=== PATIENT | female | born 1945 | race Caucasian/White ===

== ENCOUNTER → 2016-09-06 | Day surgery (SDC) | payer OTHER ==
[2016-08-27 12:20] VITALS: BMI 36.0
[~2016-09-06] VITALS: Ht 165.1 cm; Wt 98.2 kg
[~2016-09-06] MED LIST: BUDE1TAB PO; CHOL2000 PO; LEVO100T PO; LIDOCAINE HCL 2% 2 ML VIAL (20MG/ML) ONE; MESA1.2T PO; MIDAZOLAM HCL 1 MG/ML 2ML VIAL ONE; MULT-506 PO; ONDANSETRON INJ 2 MG/ML 2 ML VIAL ONE; PROPOFOL IV EMULSION 10 MG/ML 20 ML VIAL IV ONE; SODIUM CHLORIDE 0.9% 500ML 500 ML IV ONE; VERA240T21 PO
[2016-09-06 08:22] VITALS: Ht 165.1 cm; Wt 98.2 kg
--- NOTE | 2016-09-06 08:46 | Endo History and Physical ---
History & Physical Date of Service: Sep 06, 2016. Chief Complaint: hx ulcerative colitis, recent bleed within past 2 weeks Referring Physician: Michelle History of Present Illness 70 yo CF who presents for colonoscopy secondary to history of ulcerative colitis and recent GI bleeding. Past Surgical History Hx Cardiac Surgery: No Hx Internal Defibrillator: No Hx Pacemaker: No Hx Abdominal Surgery: Yes ([facility] BSO) Hx of Implantable Prosthesis: No Hx Post-Op Nausea and Vomiting: No Hx Cancer Surgery: No Hx Thoracic Surgery: No Hx Orthopedic: Yes (LT KNEE SURGERY WITH HARDWARE S/P FALL, L SHOULDER DISLOCATION REPAIR.) Hx Urinary Tract Surgery: No Family History None Social History Smoking Status: Former Smoker Hx Substance Use: No Hx Alcohol Use: No Allergies Coded Allergies: Codeine (Verified Allergy, Unknown, NAUSEA AND HEADACHE, 08/27/16) Penicillins (Verified Allergy, Unknown, RASH, 08/27/16) Current Medications Reported Home Medications Medications Dose Route/Sig Max Daily Dose Days Date Category Vitamin D3 (Cholecalciferol) 2,000 Unit Cap 1 Cap PO LUNCH 08/27/16 Reported Multivitamin (Multivitamins) Tab 1 Tab PO LUNCH 08/27/16 Reported Uceris (Budesonide) 9 Mg Tab 1 Tab PO HS 08/27/16 Reported Lialda (Mesalamine) 1.2 Gm Tab 2 Tab PO BID 08/27/16 Reported Synthroid (Levothyroxine Sodium) 100 Mcg Tab 100 Mcg PO QAM 08/27/16 Reported Verapamil HCl Cr (Verapamil HCl) 240 Mg Tab 1 Tab PO QAM 08/27/16 Reported Vital Signs Weight (Kilograms): 98.18 Height (Feet): 5 Height (Inches): 5 Date Time Temp Pulse Resp B/P Pulse Ox O2 Delivery O2 Flow Rate FiO2 09/06/16 08:10 36.5 18 192/88 97 Room Air Physical Exam General Appearance: WD/WN, no apparent distress Respiratory/Chest: Auscultation: breath sounds normal Cardiovascular: Heart Auscultation: RRR Abdomen: Bowel Sounds: normal Inspection & Palpation: soft, non-distended, no tenderness, guarding & rebound Assessment and Plan Assessment: 70 yo CF who presents for colonoscopy secondary to history of ulcerative colitis and recent GI bleeding. Plan: Proceed with colonoscopy.
--- NOTE | 2016-09-06 10:27 | Discharge Instructions ---
Endoscopy Patient Instructions Date / Procedure(s) Performed Sep 06, 2016. Colonoscopy Allergy Information Coded Allergies: Codeine (Verified Allergy, Unknown, NAUSEA AND HEADACHE, 08/27/16) Penicillins (Verified Allergy, Unknown, RASH, 08/27/16) Discharge Date / Findings Sep 06, 2016. Colon polyp Rectal polyp Ulcerative colitis Diverticulosis Internal hemorrhoids Medication Instructions Stopped Medication(s): told to stop euersis, and lialda OK to resume all medications today as prescribed. Reported Home Medications Medications Dose Route/Sig Max Daily Dose Days Date Category Vitamin D3 (Cholecalciferol) 2,000 Unit Cap 1 Cap PO LUNCH 08/27/16 Reported Multivitamin (Multivitamins) Tab 1 Tab PO LUNCH 08/27/16 Reported Uceris (Budesonide) 9 Mg Tab 1 Tab PO HS 08/27/16 Reported Lialda (Mesalamine) 1.2 Gm Tab 2 Tab PO BID 08/27/16 Reported Synthroid (Levothyroxine Sodium) 100 Mcg Tab 100 Mcg PO QAM 08/27/16 Reported Verapamil HCl Cr (Verapamil HCl) 240 Mg Tab 1 Tab PO QAM 08/27/16 Reported Provider Instructions Activity Restrictions - No exercising or heavy lifting for 24 hours. - Do not drink alcohol the day of the procedure. - Do not drive a car or operate machinery until the day after the procedure. - Do not make any important decisions or sign important papers in 24 hours after the procedure. Following Day: - Return to full activity which may include returning to work/school. Diet Start your diet with liquids and light foods (jello, soup, juice, toast). Then eat your usual diet if not nauseated. Treatment For Common After Affects For mild abdominal pain, bloating, or excessive gas: - Rest - Eat lightly - Lie on right side Follow-Up Information Follow-up with [facility] as scheduled Anesthesia Information What You Should Know You have had a procedure that required some medicine to reduce anxiety and discomfort. This treatment is called moderate sedation. After receiving the treatment, you may be sleepy, but you will be able to breathe on your own. The effects of the treatment may last for several hours. Follow these instructions along with Activity/Diet recommendations noted above: * Do NOT do anything where dizziness or clumsiness would be dangerous. * Rest quietly at home today, then you can be up and about tomorrow. * Have a responsible person stay with you the rest of today. * You may have had an I.V. today. If so, you may take the dressing off later today. Recommendations Call your doctor if: * Trouble breathing * Continuous vomiting for more than 24 hours * Temperature above 101 degrees * Severe abdominal pain or bloating * Pain not relieved by pain medicine ordered * There is increased drainage or redness from any incision * A large amount of rectal bleeding greater than 2-3 tablespoons. (If you had a polyp/s removed or have hemorrhoids, a small amount of blood - from the rectum is to be expected.) * You have any unanswered questions or concerns. IN THE EVENT OF A SERIOUS EMERGENCY, GO TO THE NEAREST EMERGENCY ROOM Your discharge instructions were prepared by provider Thien Zuniga. Patient Instructions Signature Page Marta Reaves Patient (or Guardian) Signature/Date: I have read and understand the instructions given to me by my caregivers. Caregiver/RN/Doctor Signature/Date: The above-named patient and/or guardian has received patient instructions on this date. + Original Patient Signature Page (only) stays with chart. Please make copy for patient.
--- NOTE | 2016-09-06 10:42 | GI REPORT ---
Procedure Date: 09/06/2016 9:56 AM Procedure: Colonoscopy Indications: Follow-up of ulcerative colitis Medicines: Monitored Anesthesia Care Complications: No immediate complications. Estimated Blood Loss: Estimated blood loss: none. Procedure: Pre-Anesthesia Assessment: - Prior to the procedure, a History and Physical was performed, and patient medications and allergies were reviewed. The patient's tolerance of previous anesthesia was also reviewed. The risks and benefits of the procedure and the sedation options and risks were discussed with the patient. All questions were answered, and informed consent was obtained. Prior Anticoagulants: The patient has taken no previous anticoagulant or antiplatelet agents. ASA Grade Assessment: II - A patient with mild systemic disease. After reviewing the risks and benefits, the patient was deemed in satisfactory condition to undergo the procedure. After I obtained informed consent, the scope was passed under direct vision. Throughout the procedure, the patient's blood pressure, pulse, and oxygen saturations were monitored continuously. The scope was introduced through the anus and advanced to the terminal ileum. The colonoscopy was performed without difficulty. The patient tolerated the procedure well. The quality of the bowel preparation was good. The terminal ileum, ileocecal valve, appendiceal orifice, and rectum were photographed. Findings: A 12 mm polyp was found at the ileocecal valve. The polyp was sessile. The polyp was removed with a hot snare. Resection and retrieval were complete. To prevent bleeding after the polypectomy, one hemostatic clip was successfully placed (MR conditional). There was no bleeding at the end of the procedure. A 5 mm polyp was found in the rectum. The polyp was sessile. The polyp was removed with a hot snare. Resection and retrieval were complete. Multiple small-mouthed diverticula were found in the sigmoid colon. Non-bleeding internal hemorrhoids were found during retroflexion. The hemorrhoids were small. Multiple random biopsies were obtained with cold forceps for histology in the entire colon. To stop active bleeding, one hemostatic clip was successfully placed (MR conditional). There was no bleeding at the end of the procedure. Impression: - One 12 mm polyp at the ileocecal valve, removed with a hot snare. Resected and retrieved. Clip (MR conditional) was placed. - One 5 mm polyp in the rectum, removed with a hot snare. Resected and retrieved. - Diverticulosis in the sigmoid colon. - Non-bleeding internal hemorrhoids. - Multiple random biopsies were obtained in the entire colon. - One hemostatic clip was successfully placed (MR conditional). Recommendation: - Resume previous diet. - Continue present medications. - Repeat colonoscopy for surveillance based on pathology results. - Return to primary care physician as previously scheduled. Thien Zuniga, DO 09/06/2016 10:42:25 AM This report has been signed electronically. Note Initiated On: 09/06/2016 9:56 AM I attest to the content of the Intraoperative Record and orders documented therein, exceptions below
--- NOTE | 2016-09-06 10:43 | Anesthesiology Progress Note ---
Anesthesia Post Op Note Date & Time Sep 06, 2016 at 10:44 Vital Signs Pain Intensity: 0 Vital Signs Past 12 Hours Date Time Temp Pulse Resp B/P Pulse Ox O2 Delivery O2 Flow Rate FiO2 09/06/16 10:35 82 16 90/66 95 Room Air 09/06/16 08:10 36.5 18 192/88 97 Room Air Notes Mental Status: alert / awake / arousable, participated in evaluation Pt Amnestic to Procedure: Yes Nausea / Vomiting: adequately controlled Pain: adequately controlled Airway Patency, RR, SpO2: stable & adequate BP & HR: stable & adequate Hydration State: stable & adequate Anesthetic Complications: no major complications apparent
[2016-09-06 11:15] VITALS: BP 144/77; PULSE 68; O2SAT 95
== END | disposition home or self-care (01) ==
LOC: C.GI 07:37
PROVIDERS: ATTEND Internal Medicine
DX: Z09 Encounter for follow-up examination after completed treatment for conditions other than malignant neoplasm (principal); K51.90 Ulcerative colitis, unspecified, without complications; D12.0 Benign neoplasm of cecum; K62.1 Rectal polyp; K57.32 Diverticulitis of large intestine without perforation or abscess without bleeding; K64.8 Other hemorrhoids; I10 Essential (primary) hypertension; E66.9 Obesity, unspecified; Z68.31 Body mass index [BMI] 31.0-31.9, adult; Z98.890 Other specified postprocedural states; Z87.891 Personal history of nicotine dependence; Z88.5 Allergy status to narcotic agent; Z88.2 Allergy status to sulfonamides

== ENCOUNTER → 2016-12-06 | Outpatient (CLI) | payer OTHER ==
[~2016-12-06] MED LIST changes: -LIDOCAINE HCL 2% 2 ML VIAL (20MG/ML) ONE; -MIDAZOLAM HCL 1 MG/ML 2ML VIAL ONE; -ONDANSETRON INJ 2 MG/ML 2 ML VIAL ONE; -PROPOFOL IV EMULSION 10 MG/ML 20 ML VIAL IV ONE; +REGADENOSON 0.4 MG/5 ML SYR ONE; -SODIUM CHLORIDE 0.9% 500ML 500 ML IV ONE
--- NOTE | 2016-12-08 07:35 | MYOCARDIAL PERFUSION SCAN ---
STUDY REQUESTED BY: Fermin Pulido MD STUDY TITLE: ONE-DAY NUCLEAR MEDICINE TECHNETIUM-99M CARDIOLITE MYOCARDIAL PERFUSION SCAN. INDICATION: Dyspnea on exertion, chest discomfort. ELECTROCARDIOGRAM: Baseline EKG sinus rhythm with ventricular rate of 72. There is an incomplete right bundle branch block, no significant ST abnormalities. Stress EKG, heart rate mahin from 72-95 representing 63% of maximum predicted heart rate. With Lexiscan, there were no significant ST abnormalities or arrhythmias. TECHNIQUE: For the stress portion of the study 32.0 mCi of technetium-99m Cardiolite IV was injected at 11:05 a.m. on 12/06/2016. Thirty minutes following the injection, imaging of the heart was performed in multiple projections. For the rest portion of the study, 11.0 mCi of technetium-99m Cardiolite was injected IV at 9:30 a.m. One hour following the injection, imaging of the heart was performed in the same projections. FINDINGS: Rotating raw images were reviewed in detail. There was a large uniform breast shadow. Mild liver uptake near the inferior imaging border of the heart. There was no significant extracardiac pathologic uptake. Short axis, vertical long axis, and horizontal long axis images were reviewed in detail. There was no evidence of visual TID. Myocardial perfusion was normal with both stress and rest images. LV size was small with end-diastolic volume of 56. LV function was normal with an EF of 75% and no regional wall motion abnormalities. IMPRESSION: 1. Normal myocardial perfusion scan with no evidence of Lexiscan induced ischemia or infarct. 2. Small left ventricular size with normal left ventricular function, ejection fraction of 75% with no regional wall motion abnormalities. 3. Nondiagnostic Lexiscan EKG due to inability to achieve target heart rate. MTDD
== END | disposition home or self-care (01) ==
LOC: C.NUCL 08:34
PROVIDERS: ATTEND Family Medicine
DX: R06.09 Other forms of dyspnea (principal); R07.2 Precordial pain

== ENCOUNTER → 2017-07-10 | Outpatient (CLI) | payer OTHER ==
[~2017-07-10] MED LIST changes: -REGADENOSON 0.4 MG/5 ML SYR ONE
--- NOTE | 2017-07-10 14:36 | MAMMOGRAPHY REPORT ---
BILATERAL DIGITAL SCREENING MAMMOGRAM TOMOSYNTHESIS WITH CAD: 07/10/2017 CLINICAL HISTORY: Routine screening. Patient has no complaints. TECHNIQUE: Breast tomosynthesis in addition to standard 2D mammography was performed. Current study was also evaluated with a Computer Aided Detection (CAD) system. COMPARISON: Comparison is made to exams dated: 06/03/2016 mammogram, 05/20/2016 mammogram, 12/15/2015 mammogram, 03/24/2015 mammogram, 03/09/2015 mammogram, and 12/24/2013 mammogram - [facility] enter. BREAST COMPOSITION: The tissue of both breasts is almost entirely fatty. FINDINGS: No suspicious masses, calcifications, or areas of architectural distortion are noted in ei ther breast. There has been no significant interval change compared to prior exams. Mass and associa heri biopsy marker clip in the left subareolar breast is not significantly changed. Scattered bilater al benign-appearing calcifications are also stable. Small benign-appearing mass in the left 12:00 po sterior breast is stable dating back to at least the 2007 exam. IMPRESSION: ACR BI-RADS CATEGORY 2: BENIGN There is no mammographic evidence of malignancy. A 1 year screening mammogram is recommended. The pa tient will receive written notification of the results. Approximately 10% of breast cancers are not detected with mammography. A negative mammographic report should not delay biopsy if a clinically suggestive mass is present. Julissa Kimball M.D. /:07/10/2017 13:20:30 Sewing Inspector: Albina MORGAN(Johan)(Marcelina)(MARÍA), [facility] letter sent: Normal 1/2 BI-RADS Code: ACR BI-RADS Category 2: Benign
== END | disposition home or self-care (01) ==
LOC: C.MAMM 12:50
PROVIDERS: ATTEND Family Medicine
DX: Z12.31 Encounter for screening mammogram for malignant neoplasm of breast (principal)

== ENCOUNTER → 2018-02-17 | Outpatient (CLI) | payer OTHER | END | disposition home or self-care (01) | LOC: C.LABMFLN 09:02 | PROVIDERS: ATTEND Family Medicine | DX: E03.9 Hypothyroidism, unspecified (principal); R61 Generalized hyperhidrosis ==

== ENCOUNTER 2025-06-06 10:07 | Observation (INO) ==
--- NOTE | 2025-06-06 10:18 | Emergency Department Note ---
Impression & Plan KAHN (dyspnea on exertion), Volume overload, Hypertension, CAD (coronary artery disease) ED Provider Note NAME: JUANY REED AGE: 79 SEX: F : 1945 ARRIVES VIA: Walk-In INFORMANT: Patient, ED PROVIDER(S): Bebeto Garza MD CHIEF COMPLAINT: Shortness of breath MEDICAL DECISION MAKING: Patient presents with the above. Patient with likely volume overload although has relatively clear lung sounds. Patient with lower extremity edema. IV was established and blood work was obtained along with a chest x-ray and EKG. The patient's blood work shows a normal white count hemoglobin and platelet count. The patient's kidney function is unremarkable. Electrolytes unremarkable. Patient's initial troponin is negative. Urinalysis negative for blood or infection. Chest x-ray does not show evidence of obvious pneumonia. Given the patient's symptoms concerning for volume overload. The patient was ordered IV Lasix 40 mg. Patient also with history of CAD and the patient has not had an echocardiogram since last June. Patient would likely benefit from repeat echo to further assess the patient's function. I did speak with Dionne Mckeon PA-C and Dr. Chen and the patient was admitted to the medicine service. Patient the patient's family member comfortable plan of care. Discussion w/ other healthcare providers: Dionne Mckeon PA-C and Dr. Chen inpatient medicine service Prior /Outside records reviewed: I reviewed part of a cardiology visit note from Dr. Redmond from April 26. Known history of CAD drug-eluting stents in RCA as well as anterior descending branch of left coronary. Patient on dual antiplatelet therapy. Differential diagnosis: Reactive airway disease, pneumonia, pneumothorax, COPD, CHF, ACS, pulmonary embolism, musculoskeletal, GERD as well as other pathologies were considered. Diagnostics, as interpreted by me: ECG: Normal sinus rhythm, rate of 63, normal intervals, normal axis no ST elevations. Incomplete right bundle. Cardiac monitoring: An order was placed for continuous cardiac monitoring. The monitor shows a rate of 65 with sinus rhythm. Patient was placed on pulse oximetry Medical decision rules: None Imaging studies: I informally interpreted the patient's chest x-ray does not show evidence of obvious pneumonia with formal report to follow. HPI: Patient presents due to concern for worsening shortness of breath ongoing for about 6 weeks in duration. The patient has noticed progressive worsening KAHN and orthopnea. Patient reports prior history of CAD and is followed with Dr. Redmond. She did have stents placed this past August and a year ago June. Patient denies any active chest pains. Patient states that she has had dry nonproductive cough primarily when she is lying flat. Patient has noticed worsening leg swelling. Patient believes maybe she increased in weight about 4 pounds over this time. Patient denies any nausea vomiting or diarrhea. Patient reports that she was taken off her statin due to muscle aches and pains. She denies any changes in her diet. PAST MEDICAL HISTORY: See Below PAST SURGICAL HISTORY: See Below SOCIAL HISTORY: See Below HOME MEDICATIONS: See Below ALLERGIES: See Below VITALS: See Below PHYSICAL EXAMINATION: GENERAL: NAD, non-toxic. EYE EXAM: Normal conjunctiva. PERRL, no anisocoria and EOM's grossly intact w/o pain. OROPHARYNX: Moist mucus membranes, grossly normal dentition. NECK: Trachea midline, no stridor. LUNGS: Clear to auscultation. Normal chest wall mechanics. HEART: NSR, no MRG. ABDOMEN: Abdomen soft, non-tender, no masses, no rebound or guarding. BACK: No CVA TTP. SKIN: No rashes and no bruising. UPPER EXTREMITIES: Upper extremities are grossly normal. LOWER EXTREMITIES: Grossly normal, 1+ symmetric lower extremity edema without calf pain or erythema. No obvious asymmetry. NEURO EXAM: Awake and alert, follows commands, no obvious facial asymmetry, normal speech, moves all 4 extremities. Past Med/Surg History Problem List (Updated 06/06/25 @ 17:35 by Bebeto Garza MD) Volume overload (Acute) KAHN (dyspnea on exertion) (Acute) Swelling of both lower extremities Dyspnea Presence of drug-eluting stent in anterior descending branch of left coronary artery Presence of drug-eluting stent in right coronary artery Dissecting aneurysm of thoracic aorta CAD (coronary artery disease) (Acute) Diabetes mellitus Pulmonary nodule Lingula 0.5 cm 06/[address] 6 months Depression Vitamin B12 deficiency Wet senile macular degeneration Constipation Hearing loss At risk for prolonged QT interval syndrome Allergic rhinitis Antiplatelet or antithrombotic long-term use Vitamin D deficiency (Chronic) Ulcerative colitis (Chronic) Osteoporosis (Chronic) Hypothyroidism, unspecified (Chronic) Hypertension (Chronic) Hyperlipidemia (Chronic) Diverticulosis (Chronic) Arthritis (Chronic) Medical History Detached retina Breast cyst Surgical History History of coronary artery stent placement H/O shoulder surgery H/O knee surgery H/O: hysterectomy Family History Other Coronary heart disease Hypertension Social History Smoking Status: Former smoker Hx Alcohol Use: No Hx Substance Use: No Preferred Language: Surinamese Communication Ability: Effective Amusement Park Worker Required: No Beliefs That Will Affect Care: None marital status: / Current Living Situation: Alone Current Living Situation Comment: senior house living apartments Feels Safe at Home: Yes Safety Concerns: Feels Safe At This Time caffeine: Yes Seatbelt Use: always Assistive Devices: Cane and Glasses Allergies Allergies Allergy/AdvReac Type Severity Reaction Status Date / Time codeine Allergy Unknown NAUSEA AND Verified 04/26/25 09:04 HEADACHE Penicillins Allergy Unknown RASH Verified 04/26/25 09:04 pravastatin AdvReac Mild Cramping Verified 04/26/25 09:04 of the Muscles sertraline AdvReac sedation Verified 04/26/25 09:04 zetia AdvReac Intermediate Hives Uncoded 04/26/25 09:04 flu vaccine AdvReac flu like Uncoded 04/26/25 09:04 illness Home Meds Home Medications Medication Instructions Recorded Confirmed vit C 250 mg-vit E 90 mg-zinc 40 1 tab PO BID 08/16/22 06/06/25 mg-copper 1 [id number] capsule (PreserVision AREDS-2) aspirin 81 mg tablet,delayed 81 mg PO DAILY 07/07/24 06/06/25 release (Ecotrin Low Strength) isosorbide mononitrate 60 mg 60 mg PO DAILY 06/06/25 06/06/25 tablet,extended release 24 hr Previous Rx's Medication Instructions Recorded clopidogrel 75 mg tablet (Plavix) 75 mg PO DAILY #90 tabs 07/07/24 levothyroxine 175 mcg tablet 175 mcg PO DAILY #90 tabs 01/24/25 metoprolol succinate 100 mg 100 mg PO DAILY #90 tabs 02/15/25 tablet,extended release 24 hr nitroglycerin 0.4 mg sublingual 0.4 mg sublingual .COMPLEX PRN 02/15/25 tablet (Nitrostat) chest pain #30 tabs verapamil 240 mg 24 hr 240 mg PO DAILY #90 caps 02/15/25 capsule,extended release losartan 100 mg tablet 100 mg PO DAILY #90 tabs 03/05/25 escitalopram oxalate 10 mg tablet 10 mg PO DAILY #90 tabs 04/19/25 (Lexapro) Results & Data (ED) Vital Signs Vital Signs - 24 hr 06/06/25 10:09 06/06/25 10:30 06/06/25 10:37 Temperature 36.7 C Temperature Source Temporal Artery Scan Pulse Rate 62 61 Pulse Rate from SpO2 Sensor 59 L Respiratory Rate 14 18 Respiratory Effort / Characteristics Non-Labored Spontaneous Respiratory Depth Normal Respiratory Pattern Regular Blood Pressure 153/82 H 155/65 H Blood Pressure Mean 105 95 Pulse Oximetry 95 96 Oxygen Delivery Method Room Air Room Air Room Air Sepsis New/Unexplained Change in Mental Status No Sepsis Action Taken by Nursing No Action Required 06/06/25 10:37 06/06/25 10:37 06/06/25 10:42 Temperature Temperature Source Pulse Rate 60 58 L Pulse Rate from SpO2 Sensor 58 L Respiratory Rate 18 15 Respiratory Effort / Characteristics Respiratory Depth Respiratory Pattern Blood Pressure 128/91 Blood Pressure Mean 103 Pulse Oximetry 96 94 Oxygen Delivery Method Room Air Room Air Room Air Sepsis New/Unexplained Change in Mental Status Sepsis Action Taken by Nursing 06/06/25 11:00 06/06/25 11:27 Temperature Temperature Source Pulse Rate 62 61 Pulse Rate from SpO2 Sensor 64 Respiratory Rate 26 H Respiratory Effort / Characteristics Respiratory Depth Respiratory Pattern Blood Pressure 147/74 H Blood Pressure Mean 98 Pulse Oximetry 95 Oxygen Delivery Method Room Air Sepsis New/Unexplained Change in Mental Status Sepsis Action Taken by Nursing Laboratory Data 06/06/25 10:40 06/06/25 10:40 Lab Results 06/06/25 Range/Units 10:40 WBC 7.50 (4.8-10.8) K/ul RBC 5.00 (4.20-5.40) M/uL Hgb 14.2 (12.0-16.0) g/dL Hct 43.1 (37.0-47.0) % MCV 86.2 (80.0-100.0) fL MCH 28.4 (25.0-34.0) pg MCHC 32.9 (32.0-36.0) g/dL RDW Std Deviation 42.3 (36.4-46.3) fL RDW Coeff of Raad 13.7 (11.5-14.5) % Plt Count 206 (130-400) K/uL MPV 9.8 (9.4-12.4) fL Immature Gran % (Auto) 0.4 % Neut % (Auto) 73.4 % Lymph % (Auto) 15.6 % Catron % (Auto) 7.7 % Eos % (Auto) 2.5 % Baso % (Auto) 0.4 % Neut # (Auto) 5.50 (1.40-6.50) K/uL Lymph # (Auto) 1.17 L (1.20-3.40) K/uL Catron # (Auto) 0.58 (0.11-0.59) K/uL Eos # (Auto) 0.19 (0.00-0.50) K/uL Baso # (Auto) 0.03 (0.00-0.20) K/uL Immature Gran # (Auto) 0.03 (0.01-0.20) K/uL PT 10.7 (9.0-12.0) Seconds INR 1.0 (0.9-1.1) APTT 25 (21-31) Seconds PTT Ratio 0.9 Sodium 140 (136-145) mmol/L Potassium 3.9 (3.5-5.1) mmol/L Chloride 105 (98-107) mmol/L Carbon Dioxide 27 (21-32) mmol/L Anion Gap 8 (3-11) BUN 14 (6-23) mg/dl Creatinine 0.82 (0.6-1.2) mg/dl Est Cr Clr Drug Dosing 65.2 ml/min eGFR 72.72 BUN/Creatinine Ratio 17.1 (10-20) Glucose 126 H (70-99(Fasting)) mg/dl Calcium 9.4 (8.6-10.3) mg/dl Magnesium 2.0 (1.7-2.4) mg/dl Total Bilirubin 0.5 (0.2-1.0) mg/dl AST 15 (13-39) U/L ALT 15 (7-52) U/L Alkaline Phosphatase 86 (34-104) U/L Troponin I High Sens 4.9 (0-14) pg/ml B-Natriuretic Peptide 122 H (0-100) pg/ml Total Protein 7.2 (6.0-8.3) gm/dl Albumin 4.0 (3.4-5.0) gm/dl Globulin 3.2 (2.5-4.0) gm/dl Albumin/Globulin Ratio 1.3 (0.9-2) Administered Medications Discontinued Medications Furosemide (Furosemide 40 Mg/4 Ml Vial) 40 mg IV ONE ONE Stop: 06/06/25 12:01 Last Admin: 06/06/25 12:42 Dose: 40 mg Documented By: mbu Imaging Data Radiologist's Impression: Chest X-Ray 06/06/25 10:30 XR chest 1V portable HISTORY: 79 years-old Female Dyspnea COMPARISON: CTA chest March 22, 2025 TECHNIQUE: AP view of the chest FINDINGS: Cardiac silhouette is enlarged. Unchanged mediastinal contours. No pneumothorax, pleural effusion or airspace consolidation. Mild bibasilar densities likely atelectatic. Mild chronic appearing coarsening of the interstitium. No pneumothorax, pleural effusion or overt pulmonary edema. Degenerative changes of the shoulders and spine. A screw projects over the right scapula. IMPRESSION: 1. Cardiomegaly with chronic interstitial coarsening. 2. Mild bibasilar atelectasis. ACT 112: Negative or not required by law. The above report was generated using voice recognition software. It may contain grammatical, syntax or spelling errors. Electronically signed by: Karlo Choudhury M.D. 06/06/2025 11:14 AM Discharge Plan Visit Data Chief Complaint: Shortness of Breath/Dyspnea Stated Complaint: CHEST TIGHTNESS, SOB ED Provider: Bebeto Garza Discharge Problem: KAHN (dyspnea on exertion), Volume overload, Hypertension, CAD (coronary artery disease) Patient Disposition: Admitted As Inpatient Condition: Good Discharge Instructions Interventions: ED Discharge Assessment Last Done: 06/06/25 14:53 Discharge Problem: Volume overload Qualifiers: Hypervolemia type: other Qualified Code(s): E87.79 - Other fluid overload Hypertension Qualifiers: Hypertension type: unspecified Qualified Code(s): I10 - Essential (primary) hypertension CAD (coronary artery disease) Qualifiers: Coronary Disease-Associated Artery/Lesion type: [place] artery [place] vs. transplanted heart: [place] heart Associated angina: without angina Qualified Code(s): I25.10 - Atherosclerotic heart disease of [place] coronary artery without angina pectoris
[2025-06-06 11:04] LABS: Hematocrit (blood only) 43.1 % (37.0-47.0); Hemoglobin 14.2 g/dL (12.0-16.0); Immature Granulocytes # (auto) 0.03 K/uL (0.01-0.20); Immature Granulocytes % (auto) 0.4 %; Mean Corpuscular Hemoglobin 28.4 pg (25.0-34.0); Mean Corpuscular Volume 86.2 fL (80.0-100.0); Platelet Count 206 K/uL (130-400); RDW Standard Deviation 42.3 fL (36.4-46.3); Red Blood Count 5.00 M/uL (4.20-5.40); White Blood Count 7.50 K/ul (4.8-10.8)
--- NOTE | 2025-06-06 11:20 | XRay Report ---
XR chest 1V portable HISTORY: 79 years-old Female Dyspnea COMPARISON: CTA chest March 22, 2025 TECHNIQUE: AP view of the chest FINDINGS: Cardiac silhouette is enlarged. Unchanged mediastinal contours. No pneumothorax, pleural effusion or airspace consolidation. Mild bibasilar densities likely atelectatic. Mild chronic appearing coarsenin g of the interstitium. No pneumothorax, pleural effusion or overt pulmonary edema. Degenerative moser es of the shoulders and spine. A screw projects over the right scapula. IMPRESSION: 1. Cardiomegaly with chronic interstitial coarsening. 2. Mild bibasilar atelectasis. ACT 112: Negative or not required by law. The above report was generated using voice recognition software. It may contain grammatical, syntax o r spelling errors. Electronically signed by: Karlo Choudhury M.D. 06/06/2025 11:14 AM
[2025-06-06 11:23] LABS: Alanine Aminotransferase 15.0 U/L (7-52); Albumin Globulin Ratio 1.3 (0.9-2); Albumin Level 4.0 gm/dl (3.4-5.0); Alkaline Phosphatase 86.0 U/L (34-104); Anion Gap 8.0 (3-11); Bilirubin,Total 0.5 mg/dl (0.2-1.0); Blood Urea Nitrogen 14.0 mg/dl (6-23); Calcium 9.4 mg/dl (8.6-10.3); Carbon Dioxide 27.0 mmol/L (21-32); Chloride 105.0 mmol/L (98-107); Creatinine Clr Calc Pharmacy 65.2 ml/min; Globulin 3.2 gm/dl (2.5-4.0); Glucose 126.0 mg/dl (70-99(Fasting)); Magnesium 2.0 mg/dl (1.7-2.4); Potassium 3.9 mmol/L (3.5-5.1); Sodium 140.0 mmol/L (136-145); Total Protein 7.2 gm/dl (6.0-8.3)
[2025-06-06 11:32] LABS: INR 1.0 (0.9-1.1); Partial Thromboplastin Time 25 Seconds (21-31); Prothrombin Time 10.7 Seconds (9.0-12.0)
[2025-06-06] MEDS: FUROSEMIDE 40 MG/4 ML VIAL IV ONE (12:42)
--- NOTE | 2025-06-06 13:21 | History & Physical Report ---
Date of Service June 06, 2025 Assessment & Plan (1) Dyspnea: (2) Swelling of both lower extremities: (3) CAD (coronary artery disease): (4) Hypertension: Plan Marta is a pleasant 79-year-old woman with past medical history of CAD s/p JORDAN in RCA and LAD on long-term DAPT, hypercholesterolemia, hypertension, hypothyroidism, depression, anxiety, left lung nodule, mild glucose intolerance, chronic lower extremity edema s/p venous ablation of her legs. She presented with progressive KAHN, orthopnea, LE swelling x 4-6 weeks. There is no overt pulmonary edema on CXR. BNP mildly elevated at 122. She was admitted for further workup of her symptoms. 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 Last echo in June 2024 with EF 55%, no regional wall motion abnormalities, normal LV size and systolic function - S/p Lasix 40 mg IV x 1 in ED - Repeat echocardiogram ordered - Start Lasix 40 mg IV daily - Apply TAMI valenzuela bilaterally - Daily standing weight - Monitor I's & O's - Heart healthy, low Na diet - PT/OT consulted - Trend BMP daily with ongoing diuresis - Monitor on telemetry #CAD - s/p JORDAN in RCA and LAD. Follows with Dr. Redmond outpatient - Continue DAPT - Troponin WNL at 4.9 - repeat x 1 pending #HTN - Continue lisinopril 10 mg daily, verapamil ER 240 mg daily, metoprolol ER 100 mg daily, losartan 100 mg daily #Mild glucose intolerance - most recent A1c 6.4% in 05/14. Managed by diet - Glucose on arrival 126 - Can start regimen if blood sugars are consistently elevated, but will just monitor for now #HypothyroidismTSH WNL in 05/14. Continue levothyroxine 175 mcg daily #Depression/anxietycontinue escitalopram 10 mg daily #HLD - previously took atorvastatin however this was recently discontinued secondary to myalgias - Continue routine monitoring in outpatient setting #Left lung nodule5 mm pleural-based nodule in the lingula was noted on chest CTA in 04/14. Given its size and her non-smoking status, no follow-up is necessary at this time VTE PPX: TAMI valenzuela, SCDs Dispo: Admit to med/tele Reviewed prior medical records History of Present Illness Chief Complaint: Shortness of breath Primary Care Provider: Fermin Pulido MD Marta is a pleasant 79-year-old woman with past medical history of CAD s/p JORDAN in RCA and LAD on long-term DAPT, hypercholesterolemia, hypertension, hypothyroidism, depression, anxiety, left lung nodule, mild glucose intolerance, chronic lower extremity edema s/p venous ablation of her legs. She presented from home with worsening shortness of breath and lower extremity swelling. At the time of my exam, the patient was lying in bed in no acute distress. She states over the past 4-6 weeks she has had increasing dyspnea on exertion, orthopnea, lower extremity swelling, and generalized fatigue. She has some lower extremity swelling at baseline due to a plate in her left knee and prior grafting in her right lower extremity, but notes over the past month her lower extremity swelling has worsened compared to her baseline. She becomes short of breath when vacuuming her apartment or walking to the laundry unit on her floor. She reports orthopnea and needing to be more propped up in bed recently. She does have a dry cough when lying flat, no cough when sitting upright or during the day. She reports chest "tightness" with exertion, resolves with rest. She denies chest "pain." She has been more fatigued than her baseline, noting that she sleeps up to 18 hours a day recently. She denies dizziness, diaphoresis, nausea, radiating pain or tightness. She has never been diagnosed with heart failure previously. She reports compliance with her medications. Her only recent medication change was discontinuation of her statin secondary to myalgias. She denies any significant dietary changes recently and denies significant salt intake. She primarily eats home-cooked meals made by herself, and does not frequently eat canned vegetables/soup. She does not use supplemental oxygen at baseline. No CPAP at night. Vitals on admission significant for elevated BP at 147/74 and tachypnea with respiratory rate 26 bpm; vitals otherwise stable. Labs on admission are overall unremarkable. BNP slightly elevated at 122. CBC without leukocytosis, H&H and platelets are WNL. Coagulation studies unremark able. Electrolytes WNL. Renal function WNL. Liver enzymes WNL. Troponin normal at 4.9. CXR on admission reveals cardiomegaly with chronic interstitial coarsening and mild bibasilar atelectasis no overt pulmonary edema or pleural effusion.. We discussed code status, patient wishes to be a DNR/DNI. Allergies Allergy/AdvReac Type Severity Reaction Status Date / Time codeine Allergy Unknown NAUSEA AND Verified 04/26/25 09:04 HEADACHE Penicillins Allergy Unknown RASH Verified 04/26/25 09:04 pravastatin AdvReac Mild Cramping Verified 04/26/25 09:04 of the Muscles sertraline AdvReac sedation Verified 04/26/25 09:04 zetia AdvReac Intermediate Hives Uncoded 04/26/25 09:04 flu vaccine AdvReac flu like Uncoded 04/26/25 09:04 illness Home Medications Medication Instructions Recorded Confirmed Type vit C 250 mg-vit E 90 mg-zinc 40 1 tab PO BID 08/16/22 06/06/25 History mg-copper 1 [id number] capsule (PreserVision AREDS-2) aspirin 81 mg tablet,delayed 81 mg PO DAILY 07/07/24 06/06/25 History release (Ecotrin Low Strength) clopidogrel 75 mg tablet (Plavix) 75 mg PO DAILY #90 tabs 07/07/24 06/06/25 Rx levothyroxine 175 mcg tablet 175 mcg PO DAILY #90 tabs 01/24/25 06/06/25 Rx metoprolol succinate 100 mg 100 mg PO DAILY #90 tabs 02/15/25 06/06/25 Rx tablet,extended release 24 hr nitroglycerin 0.4 mg sublingual 0.4 mg sublingual .COMPLEX PRN 02/15/25 06/06/25 Rx tablet (Nitrostat) chest pain #30 tabs verapamil 240 mg 24 hr 240 mg PO DAILY #90 caps 02/15/25 06/06/25 Rx capsule,extended release losartan 100 mg tablet 100 mg PO DAILY #90 tabs 03/05/25 06/06/25 Rx escitalopram oxalate 10 mg tablet 10 mg PO DAILY #90 tabs 04/19/25 06/06/25 Rx (Lexapro) isosorbide mononitrate 60 mg 60 mg PO DAILY 06/06/25 06/06/25 History tablet,extended release 24 hr Past Med/Surg History Problem List (Updated 06/06/25 @ 17:35 by Bebeto Garza MD) Volume overload (Acute) KAHN (dyspnea on exertion) (Acute) Swelling of both lower extremities Dyspnea Presence of drug-eluting stent in anterior descending branch of left coronary artery Presence of drug-eluting stent in right coronary artery Dissecting aneurysm of thoracic aorta CAD (coronary artery disease) (Acute) Diabetes mellitus Pulmonary nodule Lingula 0.5 cm 06/[address] 6 months Depression Vitamin B12 deficiency Wet senile macular degeneration Constipation Hearing loss At risk for prolonged QT interval syndrome Allergic rhinitis Antiplatelet or antithrombotic long-term use Vitamin D deficiency (Chronic) Ulcerative colitis (Chronic) Osteoporosis (Chronic) Hypothyroidism, unspecified (Chronic) Hypertension (Chronic) Hyperlipidemia (Chronic) Diverticulosis (Chronic) Arthritis (Chronic) Medical History Detached retina Breast cyst Surgical History History of coronary artery stent placement H/O shoulder surgery H/O knee surgery H/O: hysterectomy Family History Other Coronary heart disease Hypertension Social History Smoking Status: Former smoker Hx Alcohol Use: No Hx Substance Use: No Preferred Language: Citizen Of [place] Communication Ability: Effective Metal Temperer Required: No Beliefs That Will Affect Care: None marital status: / Current Living Situation: Alone Current Living Situation Comment: senior house living apartments Feels Safe at Home: Yes Safety Concerns: Feels Safe At This Time caffeine: Yes Seatbelt Use: always Assistive Devices: Cane and Glasses Review of Systems Review of Systems: All systems reviewed & are unremarkable except as noted in HPI & below Respiratory: + dyspnea on exertion Physical Exam Physical Exam: General: No acute distress, nondiaphoretic, well-developed, well-nourished. Skin: Warm, dry. Significant nonpitting lower extremity edema noted bilaterally. Cardiac: Regular rate and rhythm without murmurs gallops or rubs. Pulm: Slightly diminished at bases but otherwise clear to auscultation bilaterally without wheezes, rales or rhonchi. Normal respiratory effort. 99% on room air. Abdominal: Soft, nontender, nondistended. Bowel sounds present. Neuro: A&O x3. No focal neurological deficits. Results & Data Results & Data Vital Signs (Past 12 Hours) Vital Signs Temp Pulse Resp BP Pulse Ox O2 Del Method 06/06/25 11:27 61 06/06/25 11:00 62 26 H 147/74 H 95 Room Air 06/06/25 10:42 58 L 15 128/91 94 Room Air 06/06/25 10:37 60 18 96 Room Air 06/06/25 10:37 Room Air 06/06/25 10:37 Room Air 06/06/25 10:30 61 18 155/65 H 96 Room Air 06/06/25 10:09 98.1 F 62 14 153/82 H 95 Room Air Laboratory Results Reviewed CBC with differential, coagulation studies, CMP, chemistries Diagnostic Findings Reviewed CXR, EKG Supervising Physician Co-Signing Physician Notes PA Supervision Note: I personally saw and examined the patient. I verified all denson points and agree with JN Mckeon with the following exceptions and/or additions: S-Pt p/w worsening orthopnea, KAHN, and chest tightness with exertion, along with increasing leg swelling over the last few weeks. History and ROS otherwise reviewed as above O- Vitals reviewed Gen: [AAOx3, NAD, obese] HEENT: [anicteric sclerae, EOMI] CV: [RRR no mgr nl S1S2] Pulm: [CTAB no wcr] Abd: [+BS soft NT ND no masses or hernias] Ext: [1+ pitting edemaof les bilat to knees] Skin: [no rashes, warm/dry] Neuro: [full strength throughout] CBC, BMP, mag, troponin, BNP, ECG, CXR reviewed A/P-79 yo female here with acute HFpEF. Unclear etiology. Chest tightness with exertion could be from CHF but could be angina? Trend troponin, check ECHO, diurese and see if improves. If no improvement, consult Cardiology to see if needs ischemic eval as an inpatient. Rest of plan outlined as above PG Care Time/CCT Total # of Minutes Spent Total Time Spent with Patient: Total time spent is greater than 50% in coordination of care (as documented) at patient's floor/unit and/or counseling patient: Coding Level of Care Code 18343 INT INP/OBS CARE 3/75MIN Diagnoses Dyspnea R06.00 Swelling of both lower extremities M79.89 Coronary artery disease involving [place] coronary artery of [place] heart without angina pectoris I25.10 Associated angina: without angina Coronary Disease-Associated Artery/Lesion type: [place] artery [place] vs. transplanted heart: [place] heart Primary hypertension I10 Hypertension type: primary hypertension (3) CAD (coronary artery disease) Associated angina: without angina Coronary Disease-Associated Artery/Lesion type: [place] artery [place] vs. transplanted heart: [place] heart Qualified Code(s): I25.10 - Atherosclerotic heart disease of [place] coronary artery without angina pectoris (4) Hypertension Hypertension type: primary hypertension Qualified Code(s): I10 - Essential (primary) hypertension
[2025-06-06 13:41] LABS: Appearance Urine Clear (Clear); Glucose Urine UA Negative (Negative)
[2025-06-06] MEDS ORDERED: ACETAMINOPHEN 325 MG TAB PO PRN (14:57)
[2025-06-06] MEDS ORDERED: ALUMINUM/MAGNESIUM SUSP 30 ML UDC PO PRN (14:57)
[2025-06-06] MEDS ORDERED: ONDANSETRON INJ 2 MG/ML 2 ML VIAL IV PRN (14:57)
[2025-06-06] MEDS ORDERED: POLYETHYLENE (MIRALAX) 17 GM PACK PO PRN (14:57)
--- NOTE | 2025-06-06 17:23 | XCELERA ---
[id number]
[2025-06-06 19:44] VITALS: RESP 18
[2025-06-07] MEDS: LEVOTHYROXINE SODIUM 175 MCG TABLET PO SCH (05:32)
[2025-06-07 07:31] LABS: Hematocrit (blood only) 40.7 % (37.0-47.0); Hemoglobin 13.7 g/dL (12.0-16.0); Mean Corpuscular Hemoglobin 28.8 pg (25.0-34.0); Mean Corpuscular Volume 85.7 fL (80.0-100.0); Platelet Count 186 K/uL (130-400); RDW Standard Deviation 43.0 fL (36.4-46.3); Red Blood Count 4.75 M/uL (4.20-5.40); White Blood Count 7.14 K/ul (4.8-10.8)
[2025-06-07 07:52] LABS: Anion Gap 8.0 (3-11); Blood Urea Nitrogen 20.0 mg/dl (6-23); Calcium 9.1 mg/dl (8.6-10.3); Carbon Dioxide 29.0 mmol/L (21-32); Chloride 104.0 mmol/L (98-107); Creatinine Clr Calc Pharmacy 60.2 ml/min; Glucose 121.0 mg/dl (70-99(Fasting)); Potassium 3.7 mmol/L (3.5-5.1); Sodium 141.0 mmol/L (136-145)
[2025-06-07] MEDS: CLOPIDOGREL BISULFATE 75 MG TAB PO SCH (09:04)
[2025-06-07] MEDS: ESCITALOPRAM OXALATE 10 MG TAB PO SCH (09:04)
[2025-06-07] MEDS: LOSARTAN POTASSIUM 50 MG TAB PO SCH (09:04)
[2025-06-07] MEDS: METOPROLOL SUCC 50MG EXT REL TAB PO SCH (09:05)
[2025-06-07] MEDS: ISOSORBIDE MONO EXTENDED REL 60 MG TABCR PO SCH (09:05)
[2025-06-07] MEDS: ASPIRIN 81 MG ECTAB PO SCH (09:05)
[2025-06-07] MEDS: FUROSEMIDE 40 MG/4 ML VIAL IV SCH (09:06)
[2025-06-07] MEDS: VERAPAMIL HCL 240 MG TABCR PO SCH (09:38)
[2025-06-07 11:24] VITALS: BP 138/66; TEMP 97.9; O2SAT 94
--- NOTE | 2025-06-07 11:59 | Discharge Summary ---
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 She presented with progressive KAHN, orthopnea, LE swelling x 4-6 weeks. There is no overt pulmonary edema on CXR. BNP mildly elevated at 122. She was admitted for further workup of her symptoms. #Dyspnea | LE swelling - with progressive KAHN and orthopnea x 4-6 weeks INFANT CAREGIVER - Repeat echocardiogram with LVEF 60-65%, no regional wall motion abnormalities, normal LV size, mild concentric LVH, normal RV size and function, mild AR, normal estimated CVP. Compared to study in April 2021, no significant changes - S/p Lasix 40 mg IV daily with resolution of AKHN and orthopnea and improvement in LE edema - Start Lasix 40 mg PO daily and KCl 20 mEq PO daily on discharge - Encourage compression stockings bilaterally - Recommend daily standing weight - Recommend checking BMP in 1 week to monitor kidney function and electrolytes - Follow-up with energy analyst, Dr. Redmond, within 2 weeks outpatient #CAD - s/p JORDAN in RCA and LAD. Follows with Dr. Redmond outpatient - Continue DAPT - Troponin WNL at 4.9, repeat 4.4 - No events on telemetry monitoring #HTN - Continue lisinopril 10 mg daily, verapamil ER 240 mg daily, metoprolol ER 100 mg daily, losartan 100 mg daily #Mild glucose intolerance - most recent A1c 6.4% in 05/14. Managed by diet - Glucose on arrival 126 - Can start regimen if blood sugars are consistently elevated, but did not require during this hospitalization #HypothyroidismTSH WNL in 05/14. Continue levothyroxine 175 mcg daily #Depression/anxietycontinue escitalopram 10 mg daily #HLD - previously took atorvastatin however this was recently discontinued secondary to myalgias - Continue routine monitoring in outpatient setting #Left lung nodule5 mm pleural-based nodule in the lingula was noted on chest CTA in 04/14. Given its size and her non-smoking status, no follow-up is necessary at this time VTE PPX: TAMI valenzuela, SCDs Dispo: Discharged home 06/07. PT/OT cleared patient to return home on discharge Notes For Next Care Provider Recommend checking BMP in 1 week from discharge to monitor kidney function and electrolytes with starting Lasix and potassium supplementation daily. Recommend follow-up with energy analyst Dr. Redmond in outpatient setting. Medication Changes From Visit Started Lasix 40 mg p.o. daily Started KCl 20 mEq p.o. 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 She presented from home with worsening shortness of breath and lower extremity swelling. At the time of my exam, the patient was lying in bed in no acute distress. She states over the past 4-6 weeks she has had increasing dyspnea on exertion, orthopnea, lower extremity swelling, and generalized fatigue. She has some lower extremity swelling at baseline due to a plate in her left knee and prior grafting in her right lower extremity, but notes over the past month her lower extremity swelling has worsened compared to her baseline. She becomes short of breath when vacuuming her apartment or walking to the laundry unit on her floor. She reports orthopnea and needing to be more propped up in bed recently. She does have a dry cough when lying flat, no cough when sitting upright or during the day. She reports chest "tightness" with exertion, resolves with rest. She denies chest "pain." She has been more fatigued than her baseline, noting that she sleeps up to 18 hours a day recently. She denies dizziness, diaphoresis, nausea, radiating pain or tightness. She has never been diagnosed with heart failure previously. She reports compliance with her medications. Her only recent medication change was discontinuation of her statin secondary to myalgias. She denies any significant dietary changes recently and denies significant salt intake. She primarily eats home-cooked meals made by herself, and does not frequently eat canned vegetables/soup. She does not use supplemental oxygen at baseline. No CPAP at night. Vitals on admission significant for elevated BP at 147/74 and tachypnea with respiratory rate 26 bpm; vitals otherwise stable. Labs on admission are overall unremarkable. BNP slightly elevated at 122. CBC without leukocytosis, H&H and platelets are WNL. Coagulation studies unremarkable. Electrolytes WNL. Renal function WNL. Liver enzymes WNL. Troponin normal at 4.9. CXR on admission reveals cardiomegaly with chronic interstitial coarsening and mild bibasilar atelectasis no overt pulmonary edema or pleural effusion.. We discussed code status, patient wishes to be a DNR/DNI. Discharge Exam General: No acute distress, nondiaphoretic, well-developed, well-nourished. Skin: Warm, dry. Nonpitting lower extremity edema remains but improved from admission. Cardiac: Regular rate and rhythm without murmurs gallops or rubs. Pulm: Clear to auscultation bilaterally without wheezes, rales or rhonchi. Normal respiratory effort. 94% on room air. Abdominal: Soft, nontender, nondistended. Bowel sounds present. Neuro: A&O x3. No focal neurological deficits. Discharge Plan Discharge Items Patient Disposition: Home - Self-Care Reason For Visit: SOB, LE EDEMA Discharge Diagnosis: HFpEF Condition on Discharge: Good Activity: Resume your previous activity Non-emergency contact: Primary Care Provider and Irrigation Worker Call non-emergency contact if: you have any medication questions and your symptoms worsen Follow-up/Referrals: Sunday Redmond Jr, MD, [facility] [Physician] - (Follow-up within 2 weeks) Fermin Pulido MD [Primary Care Provider] - (Follow-up in 1-2 weeks) Diet: Heart Healthy Addtl Attending Provider Instructions: Marta, You were admitted to the hospital due to progressive shortness of breath with exertion, lower extremity swelling, and chest tightness. Your troponin (heart enzyme) was not elevated. You had an echocardiogram (ultrasound of your heart) that was overall unremarkable and with no significant change compared to your prior study in 2020. You were treated with IV Lasix (diuretic) with subjective improvement in your symptoms. You were also evaluated by the physical and occupational therapy teams who felt you were safe to return home on discharge. I suspect that your symptoms are due to what we call heart failure with preserved ejection fraction (HFpEF). Heart failure with preserved ejection fraction means that your heart is not pumping as well as it should, even though the main pumping chamber (the left ventricle) is still squeezing normally. This can cause fluid to build up in your body and make it harder for your heart to keep up with your body's needs. This can cause symptoms of feeling tired, short of breath, or swelling in your legs. Upon discharge from the hospital: * Start Lasix (diuretic) 40 mg once daily. This is to prevent fluid buildup in your legs. * Start potassium supplementation with 20 mEq once daily. This is to balance the electrolyte abnormalities that can happen with using diuretic medications. * If your leg swelling resolves and you develop any lightheadedness, switch your Lasix and potassium supplement to every other day dosing. * Continue your other home medications as prescribed. * Limit your salt and fluid intake. * Wear compression socks and keep your legs elevated when possible. * Monitor your weight daily. * Check labs (BMP) in 1 week to monitor your kidney function and electrolytes. I will recommend this to your PCP to order in the outpatient setting for you. * Follow-up with your PCP in 1-2 weeks. * Follow-up with your energy analyst, Dr. Redmond, within 2 weeks. Please return to the hospital if you experience any of the following: Chest pain/pressure, heart palpitations, shortness of breath, difficulty breathing, fainting or feeling like you might pass out, swelling that is getting worse quickly, inability to tolerate oral intake, new or worsening confusion, or any other symptoms concerning for you. It was a pleasure taking care of you while you were in the hospital! HEART FAILURE INSTRUCTIONS: Call 911 and go to the Emergency Room if: * You have tightness or pain in your chest that does not go away with rest or Nitroglycerin * You are very short of breath even with rest Call your doctor if any of the following symptoms or problems start or get worse: * Shortness of breath or difficulty breathing * Wake up at night short of breath * Chest pain * Cough * Swelling of your hands, fee, or legs * More fatigued or tired with your normal activity * Palpitations - sudden fast heart beats WEIGHT * Weigh yourself every morning after using the bathroom. * Use the same scale. * Wear the same amount of clothing. * Write your weight down on your chart. * Call your doctor if you gain more than 2-3 pounds in 1-2 days. MEDICATIONS * Use this discharge instruction sheet for instructions. * Take your medications at the time your doctor ordered. * Do not skip a dose of your medicines. * If you miss a dose of medicine, take as soon as possible, but DO NOT DOUBLE A DOSE. * Read your medicine information when you get home. * Know all of the side effects of your medicine. * Call your doctor's office if you have any side effects. * Be sure all of your doctors know what medicine and herbs you take (including cold, flu, and herbal medicine). * Pain Medicine: If you do not get relief from your pain, please call your doctor for help. Take the following with you to your follow-up doctor appointments: * Weight Chart * Medication List * List of questions Do not drink excessive alcohol, beer or wine. Pending Studies at Discharge: No Stand-Alone Forms: My [facility] [employer] - A First [employer] Its Kind [employer], Smoking Cessation Medications and DC Order Prescriptions: New furosemide [Lasix] 40 mg tablet 40 mg PO DAILY Qty: 30 0RF potassium chloride 20 mEq tablet extended release 20 meq PO DAILY Qty: 30 0RF Continued levothyroxine 175 mcg tablet 175 mcg PO DAILY Qty: 90 3RF losartan 100 mg tablet 100 mg PO DAILY Qty: 90 3RF PreserVision AREDS-2 250-90-40-1 mg capsule 1 tab PO BID escitalopram oxalate [Lexapro] 10 mg tablet 10 mg PO DAILY Qty: 90 3RF aspirin [Ecotrin Low Strength] 81 mg tablet,delayed release (DR/EC) 81 mg PO DAILY clopidogrel [Plavix] 75 mg tablet 75 mg PO DAILY Qty: 90 3RF metoprolol succinate 100 mg tablet extended release 24 hr 100 mg PO DAILY Qty: 90 3RF verapamil 240 mg capsule,ext rel. pellets 24 hr 240 mg PO DAILY Qty: 90 3RF nitroglycerin [Nitrostat] 0.4 mg tablet, sublingual 0.4 mg sublingual .COMPLEX PRN (Reason: chest pain) Qty: 30 5RF Rx Instructions: 0.4 mg sublingual Q 5 mins x 3 doses with chest pain PRN; isosorbide mononitrate 60 mg tablet extended release 24 hr 60 mg PO DAILY Discharge Orders: Discharge Order (Routine); Ordered 06/07/25 Ordered By: Dionne Sims Gross Admission Data Admit Date/Time: 06/06/25 13:11 Attending Provider: Dionne White Admit Provider: Hina Chen Primary Care Provider: Fermin Pulido Other Providers: Hina Chen Hospital Stay Data Consultations 06/06/25 12:00 ED Decision to Admit Stat Diagnostic Imagining Performed Chest X-Ray 06/06/25 10:30 XR chest 1V portable HISTORY: 79 years-old Female Dyspnea COMPARISON: CTA chest March 22, 2025 TECHNIQUE: AP view of the chest FINDINGS: Cardiac silhouette is enlarged. Unchanged mediastinal contours. No pneumothorax, pleural effusion or airspace consolidation. Mild bibasilar densities likely atelectatic. Mild chronic appearing coarsening of the interstitium. No pneumothorax, pleural effusion or overt pulmonary edema. Degenerative changes of the shoulders and spine. A screw projects over the right scapula. IMPRESSION: 1. Cardiomegaly with chronic interstitial coarsening. 2. Mild bibasilar atelectasis. ACT 112: Negative or not required by law. The above report was generated using voice recognition software. It may contain grammatical, syntax or spelling errors. Electronically signed by: Karlo Choudhury M.D. 06/06/2025 11:14 AM Pending Results Patient Have Any Pending Studies at Discharge: No Discharge Instructions Given to Patient (Per Discharging Provider) Marta, You were admitted to the hospital due to progressive shortness of breath with exertion, lower extremity swelling, and chest tightness. Your troponin (heart enzyme) was not elevated. You had an echocardiogram (ultrasound of your heart) that was overall unremarkable and with no significant change compared to your prior study in 2020. You were treated with IV Lasix (diuretic) with subjective improvement in your symptoms. You were also evaluated by the physical and occupational therapy teams who felt you were safe to return home on discharge. I suspect that your symptoms are due to what we call heart failure with preserved ejection fraction (HFpEF). Heart failure with preserved ejection fraction means that your heart is not pumping as well as it should, even though the main pumping chamber (the left ventricle) is still squeezing normally. This can cause fluid to build up in your body and make it harder for your heart to keep up with your body's needs. This can cause symptoms of feeling tired, short of breath, or swelling in your legs. Upon discharge from the hospital: * Start Lasix (diuretic) 40 mg once daily. This is to prevent fluid buildup in your legs. * Start potassium supplementation with 20 mEq once daily. This is to balance the electrolyte abnormalities that can happen with using diuretic medications. * If your leg swelling resolves and you develop any lightheadedness, switch your Lasix and potassium supplement to every other day dosing. * Continue your other home medications as prescribed. * Limit your salt and fluid intake. * Wear compression socks and keep your legs elevated when possible. * Monitor your weight daily. * Check labs (BMP) in 1 week to monitor your kidney function and electrolytes. I will recommend this to your PCP to order in the outpatient setting for you. * Follow-up with your PCP in 1-2 weeks. * Follow-up with your energy analyst, Dr. Redmond, within 2 weeks. Please return to the hospital if you experience any of the following: Chest pain/pressure, heart palpitations, shortness of breath, difficulty breathing, fainting or feeling like you might pass out, swelling that is getting worse quickly, inability to tolerate oral intake, new or worsening confusion, or any other symptoms concerning for you. It was a pleasure taking care of you while you were in the hospital! HEART FAILURE INSTRUCTIONS: Call 911 and go to the Emergency Room if: * You have tightness or pain in your chest that does not go away with rest or Nitroglycerin * You are very short of breath even with rest Call your doctor if any of the following symptoms or problems start or get worse: * Shortness of breath or difficulty breathing * Wake up at night short of breath * Chest pain * Cough * Swelling of your hands, fee, or legs * More fatigued or tired with your normal activity * Palpitations - sudden fast heart beats WEIGHT * Weigh yourself every morning after using the bathroom. * Use the same scale. * Wear the same amount of clothing. * Write your weight down on your chart. * Call your doctor if you gain more than 2-3 pounds in 1-2 days. MEDICATIONS * Use this discharge instruction sheet for instructions. * Take your medications at the time your doctor ordered. * Do not skip a dose of your medicines. * If you miss a dose of medicine, take as soon as possible, but DO NOT DOUBLE A DOSE. * Read your medicine information when you get home. * Know all of the side effects of your medicine. * Call your doctor's office if you have any side effects. * Be sure all of your doctors know what medicine and herbs you take (including cold, flu, and herbal medicine). * Pain Medicine: If you do not get relief from your pain, please call your doctor for help. Take the following with you to your follow-up doctor appointments: * Weight Chart * Medication List * List of questions Do not drink excessive alcohol, beer or wine. Total Time Total Time Spent Total Time Spent (In Minutes): Greater than 30 minutes spent completing this discharge process including direct patient care, medication reconciliation, documentation, review of labs and images, and coordination of care. Coding Level of Care Code 37932 INP/OBS DISCH >30 MIN Diagnoses Heart failure with preserved ejection fraction (HFpEF) I50.30 Dyspnea R06.00 Swelling of both lower extremities M79.89 Coronary artery disease involving [place] coronary artery of [place] heart without angina pectoris I25.10 Associated angina: without angina Coronary Disease-Associated Artery/Lesion type: [place] artery [place] vs. transplanted heart: [place] heart Primary hypertension I10 Hypertension type: unspecified
[2025-06-07 12:07] VITALS: PULSE 70
--- NOTE | 2025-06-07 22:11 | Electrocardiogram Report ---
Test Reason : Blood Pressure : */* mmHG Vent. Rate : 63 BPM Atrial Rate : 63 BPM P-R Int : 164 ms QRS Dur : 114 ms QT Int : 446 ms P-R-T Axes : 56 -5 33 degrees QTcB Int : 456 ms Normal sinus rhythm Incomplete right bundle branch block Borderline ECG When compared with ECG of 29-Jan-2007 10:45, Incomplete right bundle branch block is now Present Confirmed by Bryce Castrejon ([id number]) on 06/07/2025 10:10:57 PM Referred By: REFERRED SELF Confirmed By: Bryce Castrejon
== END 2025-06-07 13:33 | disposition home or self-care (01) | DRG 293 ==
LOC: ED 10:07 → 2N 13:11 → INTOOBSV 13:11 → SUATTDRO 13:11 → 2N 14:55